=== PATIENT | female | born 1945 | race American Indian/Alaskan Native ===

== ENCOUNTER 2019-09-13 09:30 | Inpatient (IN) | payer OTHER ==
[~2019-09-13] VITALS: Ht 160 cm; Wt 66.2 kg
[~2019-09-13 09:30] MED LIST: ASA 325MG EC TAB PO; Lipitor 40MG PO; PEPCID20 MG PO; PLAVIX 75MG PO; VASOTEC PO
[2019-09-13] MEDS ORDERED: GLIPIZIDE ER10 MG PO (11:13)
[2019-09-13] MEDS ORDERED: ATORVASTATIN CA20 MG PO (11:14)
[2019-09-13] MEDS ORDERED: LOSARTAN POTASS50 MG PO (11:14)
[2019-09-21] MEDS ORDERED: HYOSCYAMINE0.125 M1 SL (13:35)
[2019-09-21] MEDS ORDERED: OXYC1TAB9 PO (13:36)
[2019-09-21] MEDS ORDERED: INTESTINEX680 M1 PO (13:36)
== END 2019-09-21 14:37 | disposition home or self-care (01) | DRG 331 ==
LOC: SURH 09-18 07:00 → O/R 09-18 08:14 → SURH 09-18 09:30
PROVIDERS: ADMIT Surgery; ATTEND Surgery
PROC: 07TB4ZZ Resection of Mesenteric Lymphatic, Percutaneous Endoscopic Approach (ICD-10-PCS; 2019-09-18)
PROC: 0DJD8ZZ Inspection of Lower Intestinal Tract, Via Natural or Artificial Opening Endoscopic (ICD-10-PCS; 2019-09-18)
PROC: 0DTN4ZZ Resection of Sigmoid Colon, Percutaneous Endoscopic Approach (ICD-10-PCS; principal; 2019-09-18 07:00)
DX: C19 Malignant neoplasm of rectosigmoid junction (principal); R59.0 Localized enlarged lymph nodes; K63.89 Other specified diseases of intestine; D64.9 Anemia, unspecified; I11.9 Hypertensive heart disease without heart failure; E11.9 Type 2 diabetes mellitus without complications; Z79.4 Long term (current) use of insulin

== ENCOUNTER 2020-11-14 09:41 | Emergency (ER) | payer OTHER ==
[~2020-11-14] VITALS: Ht 160 cm; Wt 66.7 kg
[~2020-11-14 09:41] MED LIST changes: +ATORVASTATIN CA20 MG PO; +GLIPIZIDE ER10 MG PO; +HYOSCYAMINE0.125 M1 SL; +INTESTINEX680 M1 PO; +LOSARTAN POTASS50 MG PO; +OXYC1TAB9 PO
== END 2020-11-14 11:21 | disposition home or self-care (01) ==
LOC: ER 09:41
DX: S01.22XA Laceration with foreign body of nose, initial encounter (principal); W45.8XXA Other foreign body or object entering through skin, initial encounter; Y93.89 Activity, other specified; Y92.89 Other specified places as the place of occurrence of the external cause; Y99.8 Other external cause status